=== PATIENT | female | born 1980 | race American Indian/Alaskan Native ===

== ENCOUNTER 2018-03-15 01:14 | Emergency (ER) | payer OTHER ==
[2018-03-15 02:27] VITALS: BP 120/79
[2018-03-15] MEDS ORDERED: ZOFRAN IV ONE (02:29)
[2018-03-15] MEDS ORDERED: NACL 0.9% 1000 ML 1,000 ML ONE (02:30)
[2018-03-15] MEDS ORDERED: NACL 0.9% 1000 ML 1,000 ML IV ONE (02:51)
[2018-03-15 03:16] LABS: Basophils % (Auto) 0.3 % (0.0-1.8); Eosinophils % (Auto) 0.2 % (0.0-4.3); Hematocrit 38.2 % (30.3-42.9); Hemoglobin 13.2 gm/dl (10.1-14.3); Lymphocytes # (Auto) 1.7 K/mm3 (1.2-5.4); Lymphocytes % (Auto) 17.4 % (13.4-35.0); Mean Corpuscular HGB Conc 35 % (30-34); Mean Corpuscular Hemoglobin 32 pg (28-32); Mean Corpuscular Volume 93 fl (79-97); Monocytes # (Auto) 0.6 K/mm3 (0.0-0.8); Monocytes % (Auto) 5.9 % (0.0-7.3); Platelet Count 244 K/mm3 (140-440); Red Blood Count 4.13 M/mm3 (3.65-5.03)
[2018-03-15 04:08] LABS: Alanine Aminotransferase 11 units/L (7-56); BUN/Creatinine Ratio 13; Blood Urea Nitrogen 9 mg/dL (7-17); Calcium 8.9 mg/dL (8.4-10.2); Hemolysis Index 20; Lipase 23 units/L (13-60)
[2018-03-15] MEDS ORDERED: TYLENOL PO ONE (04:10)
[2018-03-15] MEDS ORDERED: TYLENOL ONE (04:11)
== END 2018-03-15 05:30 | disposition left against medical advice (07) ==
LOC: ED 01:14
DX: R11.2 Nausea with vomiting, unspecified (principal); Z53.21 Procedure and treatment not carried out due to patient leaving prior to being seen by health care provider
CPT/HCPCS: 36415; 80053; 83690; 84703; 85025; J2405; J7030

== ENCOUNTER 2018-05-03 13:18 | Emergency (ER) | payer OTHER ==
[2018-05-03 13:53] VITALS: BP 123/86
--- NOTE | 2018-05-03 14:27 | Emergency Department Report ---
ED Seizure HPI - General Chief Complaint: Seizure Stated Complaint: SEIZURE Time Seen by Provider: 05/03/18 13:40 Source: family, EMS Mode of arrival: Stretcher Limitations: Altered Mental Status - History of Present Illness Initial Comments: 37-year-old female with a past medical history of seizures currently on Tegretol , -induced hypertension, headaches as migraines, and protein S deficiency presents to the hospital complaint of seizure. Seizure witnessed by family lasted approximately 6-7 minutes. Patient complains of generalized body aches and left buccal mucosal pain. Patient was late taking her a.m. dose of 300 mg of Tegretol because she overslept. She does have a primary care doctor but not a neurologist. Patient requesting a refill of her medication. - Related Data Previous Rx's Medication Instructions Recorded Last Taken Type carBAMazepine XR [TEGretol Xr] 300 mg PO BID 30 Days tablet 05/03/18 Unknown Rx Allergies Allergy/AdvReac Type Severity Reaction Status Date / Time aspirin Allergy Seizure Verified 05/03/18 13:54 hydrocodone [From Vicodin] Allergy Hives Verified 05/03/18 13:54 methocarbamol [From Robaxin] Allergy Hives Verified 05/03/18 13:54 morphine Allergy Seizure Verified 05/03/18 13:54 oxycodone Allergy Seizure Verified 05/03/18 13:54 tramadol Allergy Hives Verified 05/03/18 13:54 ED Review of Systems ROS: Stated complaint: SEIZURE Other details as noted in HPI Comment: All other systems reviewed and negative ED Past Medical Hx - Past Medical History Hx Hypertension: Yes (with ) Hx Headaches / Migraines: Yes Hx Seizures: Yes Additional medical history: Protein S defeciency, vaginal x2 - Surgical History Additional Surgical History: 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 No tongue or intraoral laceration Neck exam: Normal inspection, full range of motion, no meningismus nontender Respiratory exam: Clear to auscultation bilateral, no wheezes, rales, crackles Cardiovascular: Normal rate and rhythm, normal heart sounds Abdomen: Soft, nondistended, and nontender, with normal bowel sounds, no rebound, or guarding Extremity: Full range of motion normal inspection no deformity Back: Normal Inspection, full range of motion, no tenderness Neurologic: Alert, oriented x3, cranial nerves intact, no motor or sensory deficit Psychiatric: normal affect, normal mood Skin: Warm, dry, intact ED Course Vital Signs 05/03/18 05/03/18 13:34 13:51 Temperature 98.6 F 98.7 F Pulse Rate 60 63 Respiratory 18 16 Rate Blood Pressure 99/60 Blood Pressure 123/86 [Left] O2 Sat by Pulse 99 100 Oximetry - Reevaluation(s) Reevaluation #1: 05/03/18 14:28 Patient received Tegretol 300 mg by mouth. Refuses lab work and prefers to be discharged home ED Medical Decision Making - Medical Decision Making Patient had a breakthrough seizure likely secondary to the Lasix Tegretol dosage. Do not take her a Tegretol dose as scheduled. One dose given in the ED and this will be discharged home with refill prescription and neurology follow-up - Differential Diagnosis seizure, noncompliance, hypoglycemia Critical Care Time: No Critical care attestation.: If time is entered above; I have spent that time in minutes in the direct care of this critically ill patient, excluding procedure time. ED Disposition Clinical Impression: Seizure Disposition: DC-01 TO HOME OR SELFCARE Is pt being admited?: No Does the pt Need Aspirin: No Condition: Stable Instructions: Epilepsy (ED) Additional Instructions: Take the medication as prescribed. Follow-up with either neurologist provided and your primary care doctor. Return if symptoms worsen as indicated by your discharge instructions. Prescriptions: carBAMazepine XR [TEGretol Xr] 300 mg PO BID 30 Days tablet Referrals: ADALGISA HERNANDEZ MD [Primary Care Provider] - 3-5 Days ANJALI DINH MD [Staff Physician] - 3-5 Days ZAINAB CALVO MD [Staff Physician] - 3-5 Days Time of Disposition: 14:29
== END 2018-05-03 14:37 | disposition home or self-care (01) ==
LOC: ED 13:18
DX: R56.9 Unspecified convulsions (principal); I10 Essential (primary) hypertension; G43.909 Migraine, unspecified, not intractable, without status migrainosus; F17.200 Nicotine dependence, unspecified, uncomplicated; Z88.6 Allergy status to analgesic agent; Z88.8 Allergy status to other drugs, medicaments and biological substances
CPT/HCPCS: 82962; 99284

== ENCOUNTER 2018-05-17 11:49 | Emergency (ER) | payer OTHER ==
[2018-05-17 12:11] VITALS: BP 102/71
[2018-05-17] MEDS ORDERED: TYLENOL PO ONE (13:42)
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
--- NOTE | 2018-05-17 14:24 | XRay Report ---
CERVICAL SPINE, 3 views: History: Neck pain. Findings: The vertebral bodies, disk spaces, posterior elements and prevertebral soft tissues are unremarkable. The dens is intact. No acute fracture or malalignment is identified. Impression: 1. No evidence for acute injury to the cervical spine.
== END 2018-05-17 14:54 | disposition home or self-care (01) ==
LOC: ED 11:49
DX: S13.4XXA Sprain of ligaments of cervical spine, initial encounter (principal); I10 Essential (primary) hypertension; G43.909 Migraine, unspecified, not intractable, without status migrainosus; F17.200 Nicotine dependence, unspecified, uncomplicated; Z88.6 Allergy status to analgesic agent; Z88.8 Allergy status to other drugs, medicaments and biological substances; V49.9XXA Car occupant (driver) (passenger) injured in unspecified traffic accident, initial encounter; Y93.89 Activity, other specified; Y92.89 Other specified places as the place of occurrence of the external cause; Y99.8 Other external cause status
CPT/HCPCS: 72040; 99283

== ENCOUNTER 2018-05-24 02:41 | Emergency (ER) | payer OTHER ==
[2018-05-24] MEDS ORDERED: ATIVAN ONE (02:57)
[2018-05-24] MEDS ORDERED: ATIVAN IV ONE (03:00)
[2018-05-24 03:48] LABS: Hematocrit 38.5 % (30.3-42.9); Hemoglobin 12.7 gm/dl (10.1-14.3); Mean Corpuscular HGB Conc 33 % (30-34); Mean Corpuscular Hemoglobin 31 pg (28-32); Mean Corpuscular Volume 94 fl (79-97); Mean Platelet Volume 7.6 fl (6-12); Platelet Count 228 K/mm3 (140-440); Red Blood Count 4.08 M/mm3 (3.65-5.03); Red Cell Distribution Width 14.4 % (13.2-15.2)
[2018-05-24 04:00] LABS: BUN/Creatinine Ratio 11; Blood Urea Nitrogen 8 mg/dL (7-17); Hemolysis Index 33
[2018-05-24 07:37] LABS: HCG Qualitative,Urine Negative (Negative)
[2018-05-24] MEDS ORDERED: KEPPRA 1,000 MG/NS 0.75% 100ML 1,000 MG/100 ML BAG IV ONE (07:42)
[2018-05-24 07:45] LABS: Amphetamine Screen,Urine PRESUMPTIVE NEGATIVE; Benzodiazepines Screen,Urine PRESUMPTIVE NEGATIVE; Cocaine Screen,Urine PRESUMPTIVE NEGATIVE; Methadone Screen,Urine PRESUMPTIVE NEGATIVE; Opiate Screen,Urine PRESUMPTIVE NEGATIVE
[2018-05-24 07:55] LABS: Bacteria,Urine 1+ /HPF (Negative); Bilirubin,Urine NEG (Negative); Blood,Urine MOD (Negative); Color,Urine Yellow (Yellow); Mucus,Urine FEW /HPF; Protein,Urine <15 mg/dL mg/dL (Negative); Urobilinogen,Urine < 2.0 mg/dL (<2.0)
[2018-05-24 07:58] LABS: Cannabinoid Screen,Urine PRESUMPTIVE POSITIVE
--- NOTE | 2018-05-24 09:39 | Emergency Department Report ---
ED General Adult HPI - General Chief complaint: Seizure Stated complaint: SEIZURE Time Seen by Provider: 05/24/18 06:30 Source: EMS Mode of arrival: Stretcher Limitations: No Limitations - History of Present Illness Initial comments: 37-year-old female is brought to the emergency department after a "seizure". The patient states that she did not hurt herself. She states that she last took her Tegretol yesterday. She does not admit noncompliance. The patient states that she was previously on Keppra as well. She states that she has not had another recent seizure. She does not complain of injury nor headache or neurological change. She's had no recent fever or chills. -: unknown Severity scale (0 -10): 0 Associated Symptoms: denies other symptoms - Related Data Previous Rx's Medication Instructions Recorded Last Taken Type carBAMazepine XR [TEGretol Xr] 300 mg PO BID 30 Days tablet 05/03/18 Unknown Rx Acetaminophen 500 mg PO Q8H PRN #30 tablet 05/17/18 Unknown Rx Cyclobenzaprine [Flexeril] 10 mg PO BID PRN #10 tablet 05/17/18 Unknown Rx levETIRAcetam [Keppra] 500 mg PO BID #60 tablet 05/24/18 Unknown Rx Allergies Allergy/AdvReac Type Severity Reaction Status Date / Time aspirin Allergy Seizure Verified 05/03/18 13:54 hydrocodone [From Vicodin] Allergy Hives Verified 05/03/18 13:54 methocarbamol [From Robaxin] Allergy Hives Verified 05/03/18 13:54 morphine Allergy Seizure Verified 05/03/18 13:54 oxycodone Allergy Seizure Verified 05/03/18 13:54 tramadol Allergy Hives Verified 05/03/18 13:54 ED Review of Systems ROS: Stated complaint: SEIZURE Other details as noted in HPI Constitutional: denies: chills, fever Eyes: denies: eye pain, eye discharge, vision change ENT: denies: ear pain, throat pain Respiratory: denies: cough, shortness of breath, wheezing Cardiovascular: denies: chest pain, palpitations Endocrine: no symptoms reported Gastrointestinal: denies: abdominal pain, nausea, diarrhea Genitourinary: denies: urgency, dysuria, discharge Musculoskeletal: denies: back pain, joint swelling, arthralgia Skin: denies: rash, lesions Neurological: as per HPI. 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 - Social History Smoking Status: Current Every Day Smoker Substance Use Type: None - Medications Home Medications: Home Medications Medication Instructions Recorded Confirmed Last Taken Type carBAMazepine XR [TEGretol Xr] 300 mg PO BID 30 Days tablet 05/03/18 Unknown Rx Acetaminophen 500 mg PO Q8H PRN #30 tablet 05/17/18 Unknown Rx Cyclobenzaprine [Flexeril] 10 mg PO BID PRN #10 tablet 05/17/18 Unknown Rx levETIRAcetam [Keppra] 500 mg PO BID #60 tablet 05/24/18 Unknown Rx ED Physical Exam - General Limitations: No Limitations General appearance: alert, in no apparent distress - Head Head exam: Present: atraumatic, normocephalic - Eye Eye exam: Present: normal appearance, PERRL, EOMI. Absent: scleral icterus - ENT ENT exam: Present: mucous membranes moist - Neck Neck exam: Present: normal inspection. Absent: tenderness, meningismus - Respiratory Respiratory exam: Present: normal lung sounds bilaterally. Absent: respiratory distress - Cardiovascular Cardiovascular Exam: Present: regular rate, normal rhythm. Absent: systolic murmur, diastolic murmur, rubs, gallop - GI/Abdominal GI/Abdominal exam: Present: soft, normal bowel sounds. Absent: distended, tenderness, guarding, rebound, rigid - Extremities Exam Extremities exam: Present: normal inspection - Back Exam Back exam: Present: normal inspection - Neurological Exam Neurological exam: Present: alert, oriented X3, CN II-XII intact. Absent: motor sensory deficit - Psychiatric Psychiatric exam: Present: normal affect, normal mood - Skin Skin exam: Present: warm, dry, intact, normal color. Absent: rash ED Course Vital Signs 05/24/18 05/24/18 05/24/18 03:01 03:11 04:00 Temperature 98 F Pulse Rate 94 H Respiratory 19 Rate Blood Pressure 128/81 128/81 110/67 Blood Pressure 128/81 [Left] O2 Sat by Pulse 100 100 100 Oximetry 05/24/18 05/24/18 05/24/18 05:00 06:00 07:00 Temperature Pulse Rate Respiratory Rate Blood Pressure 113/72 123/77 128/52 Blood Pressure [Left] O2 Sat by Pulse 100 100 100 Oximetry 05/24/18 05/24/18 05/24/18 07:05 08:00 09:00 Temperature 98.2 F 98.2 F Pulse Rate 77 73 Respiratory 18 15 Rate Blood Pressure 118/72 Blood Pressure 128/52 100/73 [Left] O2 Sat by Pulse 100 100 100 Oximetry - Reevaluation(s) Reevaluation #1: Patient essentially slept the rest comfortably throughout her emergency department stay. She had no additional seizure activity. She was given a gram of Keppra IV. She was discharged in stable condition. 05/24/18 10:55 ED Medical Decision Making - Lab Data Result diagrams: 05/24/18 03:29 05/24/18 03:29 Laboratory Results - last 24 hr 05/24/18 05/24/18 05/24/18 03:29 03:29 07:10 WBC 7.7 RBC 4.08 Hgb 12.7 Hct 38.5 MCV 94 MCH 31 MCHC 33 RDW 14.4 Plt Count 228 Sodium 138 Potassium 3.6 Chloride 103.0 Carbon Dioxide 21 L Anion Gap 18 BUN 8 Creatinine 0.7 Estimated GFR > 60 BUN/Creatinine Ratio 11 Glucose 101 H Calcium 9.0 Urine Color Yellow Urine Turbidity Clear Urine pH 6.0 Ur Specific [place] 1.009 Urine Protein <15 mg/dl Urine Glucose (UA) Neg Urine Ketones Neg Urine Blood Mod Urine Nitrite Neg Ur Reducing Substances Not Reportable Urine Bilirubin Neg Urine Ictotest Not Reportable Urine Urobilinogen < 2.0 Ur Leukocyte Esterase Tr Urine WBC (Auto) 1.0 Urine RBC (Auto) 4.0 U Epithel Cells (Auto) 5.0 Urine Bacteria (Auto) 1+ Urine Mucus Few Urine HCG, Qual Negative Urine Opiates Screen Urine Methadone Screen Ur Barbiturates Screen Ur Phencyclidine Scrn Ur Amphetamines Screen U Benzodiazepines Scrn Urine Cocaine Screen U Marijuana (THC) Screen Drugs of Abuse Note 05/24/18 07:10 WBC RBC Hgb Hct MCV MCH MCHC RDW Plt Count Sodium Potassium Chloride Carbon Dioxide Anion Gap BUN Creatinine Estimated GFR BUN/Creatinine Ratio Glucose Calcium Urine Color Urine Turbidity Urine pH Ur Specific [place] Urine Protein Urine Glucose (UA) Urine Ketones Urine Blood Urine Nitrite Ur Reducing Substances Urine Bilirubin Urine Ictotest Urine Urobilinogen Ur Leukocyte Esterase Urine WBC (Auto) Urine RBC (Auto) U Epithel Cells (Auto) Urine Bacteria (Auto) Urine Mucus Urine HCG, Qual Urine Opiates Screen Presumptive negative Urine Methadone Screen Presumptive negative Ur Barbiturates Screen Presumptive negative Ur Phencyclidine Scrn Presumptive negative Ur Amphetamines Screen Presumptive negative U Benzodiazepines Scrn Presumptive negative Urine Cocaine Screen Presumptive negative U Marijuana (THC) Screen Presumptive positive Drugs of Abuse Note Disclamer Critical care attestation.: If time is entered above; I have spent that time in minutes in the direct care of this critically ill patient, excluding procedure time. ED Disposition Clinical Impression: Seizure, History of seizure disorder Disposition: DC-01 TO HOME OR SELFCARE Is pt being admited?: No Does the pt Need Aspirin: No Condition: Stable Instructions: Recurrent Seizures Adult (ED) Additional Instructions: Follow-up with your neurologist. Return any acute change or problems. See her primary care physician. Restart Keppra. Return any acute change or problem. Prescriptions: levETIRAcetam [Keppra] 500 mg PO BID #60 tablet Referrals: PRIMARY CARE [Primary Care Provider] - 3-5 Days Time of Disposition: 10:57
[2018-05-24 11:55] VITALS: BP 128/85
== END 2018-05-24 11:39 | disposition home or self-care (01) ==
LOC: ED 02:41
DX: R56.9 Unspecified convulsions (principal); G43.909 Migraine, unspecified, not intractable, without status migrainosus; F17.200 Nicotine dependence, unspecified, uncomplicated; Z79.82 Long term (current) use of aspirin; Z88.5 Allergy status to narcotic agent
CPT/HCPCS: 36415; 51702; 80048; 80307; 81001; 81025; 85027; 96374; 96375; 99284; J1953; J2060

== ENCOUNTER 2018-12-03 11:43 | Emergency (ER) | payer SELFPAY ==
--- NOTE | 2018-12-03 12:21 | Emergency Department Report ---
ED Seizure HPI - General Chief Complaint: Seizure Stated Complaint: SEIZURES Time Seen by Provider: 12/03/18 12:08 Source: patient, family, EMS (ems notes not available at time of chart dictation), RN notes reviewed, old records reviewed Mode of arrival: Stretcher Limitations: No Limitations - History of Present Illness Initial Comments: This is a 38-year-old female, not known to this provider previously, history of seizures, supposed to be on Tegretol, 300 mg twice daily, patient has not taken seizure medication for over a week secondary to insurance issues, reports that she is not on Keppra. Reports that she is not , and they also have a history of protein S deficiency. Patient reports being in her usual state of health, at [facility], when she had a seizure. Prior to the seizure, she developed a mild frontal headache, not sudden or thunderclap in nature, not maximal in intensity, now basically resolved. She denies neck pain and neck stiffness, extremity weakness or numbness, urinary tract symptoms, and reports that she is not using illicit drugs. She does reports that people around her occasionally consume cannabis. She has diffuse myalgias, nonradiating, increased with palpation and decreased with rest. MD Complaint: seizure -: Sudden Description of Episode: loss of consciousness, tonic-clonic movement -: second(s) Witnessed:: Yes Trauma: No Seizure History: known seizure disorder, history of non-compliance Place: other (patient in [facility]) Possible Precipitating Event: other (medication noncompliance) - Related Data Previous Rx's Medication Instructions Recorded Last Taken Type Acetaminophen 500 mg PO Q8H PRN #30 tablet 05/17/18 Unknown Rx Cyclobenzaprine [Flexeril] 10 mg PO BID PRN #10 tablet 05/17/18 Unknown Rx levETIRAcetam [Keppra] 500 mg PO BID #60 tablet 05/24/18 Unknown Rx carBAMazepine XR [TEGretol Xr] 300 mg PO BID #60 tablet 12/03/18 Unknown Rx Allergies Allergy/AdvReac Type Severity Reaction Status Date / Time aspirin Allergy Seizure Verified 05/03/18 13:54 hydrocodone [From Vicodin] Allergy Hives Verified 05/03/18 13:54 methocarbamol [From Robaxin] Allergy Hives Verified 05/03/18 13:54 morphine Allergy Seizure Verified 05/03/18 13:54 oxycodone Allergy Seizure Verified 05/03/18 13:54 tramadol Allergy Hives Verified 05/03/18 13:54 ED Review of Systems ROS: Stated complaint: SEIZURES Other details as noted in HPI Constitutional: malaise. denies: fever Eyes: denies: vision change ENT: denies: epistaxis Respiratory: denies: cough Cardiovascular: denies: chest pain Gastrointestinal: denies: nausea, vomiting Genitourinary: denies: urgency, dysuria Musculoskeletal: back pain, arthralgia, myalgia Skin: denies: lesions Neurological: headache, weakness. 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 - Social History Smoking Status: Current Every Day Smoker Substance Use Type: None - Medications Home Medications: Home Medications Medication Instructions Recorded Confirmed Last Taken Type Acetaminophen 500 mg PO Q8H PRN #30 tablet 05/17/18 Unknown Rx Cyclobenzaprine [Flexeril] 10 mg PO BID PRN #10 tablet 05/17/18 Unknown Rx levETIRAcetam [Keppra] 500 mg PO BID #60 tablet 05/24/18 Unknown Rx carBAMazepine XR [TEGretol Xr] 300 mg PO BID #60 tablet 12/03/18 Unknown Rx ED Physical Exam - General Limitations: No Limitations General appearance: alert, in no apparent distress - Head Head exam: Present: atraumatic, normocephalic - Eye Eye exam: Present: normal appearance, PERRL, EOMI, other (visual acuity intact to finger counting, color perception, reading at a close distance). Absent: nystagmus - ENT ENT exam: Present: normal exam, normal orophraynx, mucous membranes moist, n ormal external ear exam - Neck Neck exam: Present: normal inspection, full ROM. Absent: tenderness, meningismus - Respiratory Respiratory exam: Present: normal lung sounds bilaterally. Absent: respiratory distress - Cardiovascular Cardiovascular Exam: Present: regular rate, normal rhythm, normal heart sounds. Absent: bradycardia, tachycardia, irregular rhythm, systolic murmur, diastolic murmur, rubs, gallop - GI/Abdominal GI/Abdominal exam: Present: soft. Absent: distended, tenderness, guarding, rebound, rigid, pulsatile mass - Extremities Exam Extremities exam: Present: normal inspection, full ROM, other (2+ pulses noted in the bilateral upper, lower extremities. Compartments soft. No long bony tenderness. The pelvis is stable.). Absent: pedal edema, joint swelling, calf tenderness - Back Exam Back exam: Present: normal inspection, full ROM. Absent: tenderness, CVA tenderness (R), paraspinal tenderness, vertebral tenderness - Neurological Exam Neurological exam: Present: alert, oriented X3, CN II-XII intact, other (Extraocular movements intact. Tongue midline. No facial droop. Facial sensation intact to light touch in the V1, V2, V3 distribution bilaterally. 5 and 5 strength in 4 extremities.. Sensation is intact to light touch in 4 extremities.). Absent: motor sensory deficit - Psychiatric Psychiatric exam: Present: anxious - Skin Skin exam: Present: warm, dry, intact, normal color. Absent: rash ED Course Vital Signs 12/03/18 12/03/18 11:58 12:17 Temperature 99.0 F Pulse Rate 74 76 Respiratory 18 16 Rate Blood Pressure 112/65 Blood Pressure 133/84 [Right] O2 Sat by Pulse 100 Oximetry - Reevaluation(s) Reevaluation #1: 12/03/18 13:25 Differential diagnosis, including without limited to: Migraine headache, tension headache, cluster headache, medication noncompliance, breakthrough seizure Assessment and plan: 38-year-old female with reported history of medication noncompliance, no history of head trauma, clinically sober at this time, with a Pal[place] Coma Scale of 15, with an NIH score of 0. Most likely had a breakthrough seizure secondary to medication noncompliance. We will refill her Tegretol medication. She reports that she's gotten her insurance recently, and reports that she is reliable to have her seizure medications refilled. Screening laboratory studies unremarkable, she denies urinary symptoms, we'll give her acetaminophen for pain, we will obtain noncontrast CT scan of the brain to exclude significant intracranial structural abnormalities. Reevaluation #2: 12/03/18 14:47 Laboratory studies reviewed, and are unremarkable. Noncontrast CT scan of the brain is negative for acute disease. Patient able to walk with 1 person assist. She reports readiness for discharge and would like to go home. She will be discharged at this point in time. ED Medical Decision Making - Lab Data Result diagrams: 12/03/18 12:30 Critical care attestation.: If time is entered above; I have spent that time in minutes in the direct care of this critically ill patient, excluding procedure time. ED Disposition Clinical Impression: History of seizure Disposition: DC-01 TO HOME OR SELFCARE Is pt being admited?: No Does the pt Need Aspirin: No Condition: Stable Instructions: Recurrent Seizures Adult (ED) Additional Instructions: Take your seizure medication as directed. Noncompliance with seizure medications may result in breakthrough seizures, which in turn may cause disability, , paralysis, loss of quality of life. Follow-up with the primary care doctor or any of the listed neurology specialist within the next 7- [address] or operate motor vehicles for the next 6 months, and avoid being close to large bodies of water or any kind of water without adult supervision. Avoid exposure to cannabis and illegal drugs as these may decrease seizure threshold. Take Tylenol, alternating with ibuprofen, [id number], as needed for pain. Return to the ER right away with new pain, worsened pain, migration of pain, rectal vomiting, change in mental status, confusion, inability to speak, inability to breathe, new, worsened or different symptoms. Prescriptions: carBAMazepine XR [TEGretol Xr] 300 mg PO BID #60 tablet Referrals: ZAINAB CALVO MD [Staff Physician] - 3-5 Days ANJALI DINH MD [Staff Physician] - 3-5 Days JOSELIN FLORES MD [Referring] - 3-5 Days
[2018-12-03 13:17] LABS: BUN/Creatinine Ratio 10; Blood Urea Nitrogen 7 mg/dL (7-17); Calcium 9.2 mg/dL (8.4-10.2); Hemolysis Index 14
[2018-12-03] MEDS ORDERED: TYLENOL PO ONE (13:25)
--- NOTE | 2018-12-03 14:05 | Cat Scan Report ---
FINAL REPORT EXAM: CT HEAD/BRAIN WO CON HISTORY: sz headache, HX OF SAME TECHNIQUE: CT of the head was performed. No intravenous contrast was administered. PRIORS: None. FINDINGS: There is no evidence of intracranial hemorrhage. There is no edema, mass effect or midline shift. There are no abnormal extra-axial fluid collections. The ventricles are appropriate for brain volume. There is no skull fracture seen. The visualized aspects of the sinuses are clear. IMPRESSION: There is no acute intracranial abnormality identified.
[2018-12-03 15:11] VITALS: BP 130/45
== END 2018-12-03 15:09 | disposition home or self-care (01) ==
LOC: ED 11:43
DX: G40.909 Epilepsy, unspecified, not intractable, without status epilepticus (principal); G43.909 Migraine, unspecified, not intractable, without status migrainosus; F17.200 Nicotine dependence, unspecified, uncomplicated; Z88.8 Allergy status to other drugs, medicaments and biological substances; Z88.6 Allergy status to analgesic agent
CPT/HCPCS: 36415; 70450; 80048; 82550; 84702

== ENCOUNTER 2019-05-10 11:03 | Emergency (ER) | payer MEDICAID, OTHER ==
--- NOTE | 2019-05-10 11:42 | Emergency Department Report ---
Blank Doc - Documentation Documentation: This is a 38-year-old female that presents with nausea and pelvic pain. Stated is about 5 weeks . This initial assessment/diagnostic orders/clinical plan/treatment(s) is/are subject to change based on patient's health status, clinical progression and re- assessment by fellow clinical providers in the ED. Further treatment and workup at subsequent clinical providers discretion. Patient/guardians urged not to elope from the ED as their condition may be serious if not clinically assessed and managed. Initial orders include: 1- Patient sent to [facility] for further evaluation and treatment 2- labs 3- UA
[2019-05-10 12:30] LABS: Bilirubin,Urine NEG (Negative); Blood,Urine MOD (Negative); Color,Urine Yellow (Yellow); Mucus,Urine 1+ /HPF; Protein,Urine <15 mg/dL mg/dL (Negative)
[2019-05-10 13:01] LABS: Basophils % (Auto) 0.8 % (0.0-1.8); Eosinophils % (Auto) 0.9 % (0.0-4.3); Hematocrit 41.1 % (30.3-42.9); Hemoglobin 13.9 gm/dl (10.1-14.3); Lymphocytes # (Auto) 1.7 K/mm3 (1.2-5.4); Lymphocytes % (Auto) 38.6 % (13.4-35.0); Mean Corpuscular HGB Conc 34 % (30-34); Mean Corpuscular Volume 96 fl (79-97); Monocytes # (Auto) 0.3 K/mm3 (0.0-0.8); Monocytes % (Auto) 7.1 % (0.0-7.3); Platelet Count 252 K/mm3 (140-440)
[2019-05-10 13:23] LABS: Alanine Aminotransferase 8 units/L (7-56); Albumin 4.1 g/dL (3.9-5); BUN/Creatinine Ratio 13; Blood Urea Nitrogen 9 mg/dL (7-17); Calcium 8.9 mg/dL (8.4-10.2); Hemolysis Index 10
--- NOTE | 2019-05-10 13:24 | Emergency Department Report ---
ED HPI - General Chief complaint: Abdominal Pain Stated complaint: 5WKS /ABD PAIN Time Seen by Provider: 05/10/19 11:41 Source: patient Mode of arrival: Ambulatory Limitations: No Limitations - History of Present Illness Initial comments: 38-year-old female, 5 weeks , presents to ED with complaint of abdominal cramping since yesterday. Patient denies any vaginal bleeding. Patient reports history of protein S deficiency. with history of one ectopic and 3 miscarriages. OB: My stem cutter MD Complaint: abdominal pain -: days(s) (1) Location: pelvis Radiation: none Severity: moderate Quality: cramping Consistency: intermittent Improves with: none Worsens with: none Associated symptoms: nausea/vomiting. denies: vaginal bleeding Vaginal bleeding: none :: Yes Number of weeks : 5 - Related Data Previous Rx's Medication Instructions Recorded Last Taken Type Acetaminophen 500 mg PO Q8H PRN #30 tablet 05/17/18 Unknown Rx Cyclobenzaprine [Flexeril] 10 mg PO BID PRN #10 tablet 05/17/18 Unknown Rx levETIRAcetam [Keppra] 500 mg PO BID #60 tablet 05/24/18 Unknown Rx carBAMazepine XR [TEGretol Xr] 300 mg PO BID #60 tablet 12/03/18 Unknown Rx Allergies Allergy/AdvReac Type Severity Reaction Status Date / Time aspirin Allergy Seizure Verified 05/10/19 11:05 hydrocodone [From Vicodin] Allergy Hives Verified 05/10/19 11:05 methocarbamol [From Robaxin] Allergy Hives Verified 05/10/19 11:05 morphine Allergy Seizure Verified 05/10/19 11:05 oxycodone Allergy Seizure Verified 05/10/19 11:05 tramadol Allergy Hives Verified 05/10/19 11:05 ED Review of Systems ROS: Stated complaint: 5WKS /ABD PAIN Other details as noted in HPI Comment: All other systems reviewed and negative Constitutional: denies: chills, fever Gastrointestinal: abdominal pain, nausea Genitourinary: other (denies vag bleeding) ED Past Medical Hx - Past Medical History Hx Hypertension: Yes (with ) Hx Headaches / Migraines: Yes Hx Seizures: Yes Additional medical history: Protein S defeciency, vaginal x2 - Surgical History Additional Surgical History: 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 - Social History Smoking Status: Current Every Day Smoker Substance Use Type: None - Medications Home Medications: Home Medications Medication Instructions Recorded Confirmed Last Taken Type Acetaminophen 500 mg PO Q8H PRN #30 tablet 05/17/18 Unknown Rx Cyclobenzaprine [Flexeril] 10 mg PO BID PRN #10 tablet 05/17/18 Unknown Rx levETIRAcetam [Keppra] 500 mg PO BID #60 tablet 05/24/18 Unknown Rx carBAMazepine XR [TEGretol Xr] 300 mg PO BID #60 tablet 12/03/18 Unknown Rx ED Physical Exam - General Limitations: No Limitations General appearance: alert, in no apparent distress - Head Head exam: Present: atraumatic, normocephalic - Eye Eye exam: Present: normal appearance - ENT ENT exam: Present: mucous membranes moist - Neck Neck exam: Present: normal inspection - Respiratory Respiratory exam: Present: normal lung sounds bilaterally. Absent: respiratory distress - Cardiovascular Cardiovascular Exam: Present: regular rate, normal rhythm - GI/Abdominal GI/Abdominal exam: Present: soft, tenderness (mild suprapubic tenderness). Absent: distended - Extremities Exam Extremities exam: Present: normal inspection - Neurological Exam Neurological exam: Present: alert, oriented X3 - Psychiatric Psychiatric exam: Present: normal affect, normal mood - Skin Skin exam: Present: warm, dry, intact, normal color. 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 ED Disposition Clinical Impression: 5 weeks gestation of , Abdominal pain affecting Disposition: TO HOME OR SELFCARE Is pt being admited?: No Condition: Stable Instructions: Abdominal Pain in (ED) [facility] - 3-5 Days KINGSLEY HOWELL MD [Referring] - 3-5 Days ALEKSEY HOWELL MD [Staff Physician] - 3-5 Days MAGALIS BORDEN MD [Staff Physician] - 3-5 Days DEVANG PACHECO MD [Staff Physician] - 3-5 Days SOILA PATEL DO [Staff Physician] - 3-5 Days VAL FRANCISCO MD [Staff Physician] - 3-5 Days JAQUI TOLENTINO MD [Staff Physician] - 3-5 Days Time of Disposition: 15:20
--- NOTE | 2019-05-10 15:12 | Ultrasound Report ---
ULTRASOUND OB LESS THAN 14 WEEKS FETUS ULTRASOUND OB TRANSVAGINAL History: Abdominal pain Findings: Transabdominal and transvaginal ultrasound imaging was performed. The uterus is anteverted. The uterus measures 8.1 x 4.3 x 5.2 cm. No uterine fibroids are identified. An intrauterine gestational sac containing a small yolk sac is identified. No pole or heart rate could be detected at this time. Gestational sac diameter measures 5.4 mm which correlates with a 5 week 2 day . A small subchorionic hemorrhage is suspected along the posterior border of the gestational sac. The right ovary measures 3.8 x 1.7 x 2.2 cm. A 1.9 cm complex area in the right ovary probably represents a corpus luteum cyst. The left ovary is unremarkable measuring 2.8 x 1.2 x 2.3 cm. No pelvic fluid collection. IMPRESSION: Probable very early intrauterine . Only a gestational sac and yolk sac are identified at this time. No pole or heart rate could be demonstrated. Close interval followup is recommended. Small subchorionic hemorrhage.
[2019-05-10 16:07] VITALS: BP 104/72
== END 2019-05-10 16:19 | disposition home or self-care (01) ==
LOC: ED 11:03
DX: O26.891 Other specified pregnancy related conditions, first trimester (principal); R10.9 Unspecified abdominal pain; R11.0 Nausea; O99.331 Smoking (tobacco) complicating pregnancy, first trimester; O10.911 Unspecified pre-existing hypertension complicating pregnancy, first trimester; G43.909 Migraine, unspecified, not intractable, without status migrainosus; Z3A.01 Less than 8 weeks gestation of pregnancy
CPT/HCPCS: 36415; 76801; 76817; 80053; 81001; 84702; 85025